=== PATIENT | male | born 1985 | race Caucasian/White ===

== ENCOUNTER 2022-05-20 08:29 | Outpatient (CLI) | payer BC | END 2022-05-20 08:30 | disposition home or self-care (01) | LOC: SC 08:29 | PROVIDERS: ATTEND Nurse Practitioner Family | DX: G47.33 Obstructive sleep apnea (adult) (pediatric) (principal); R09.02 Hypoxemia | CPT/HCPCS: 95806 ==

== ENCOUNTER 2022-05-24 14:21 | Outpatient (CLI) | payer BC ==
--- NOTE | 2022-05-24 14:53 | SLEEP CARE CONSULTATION ---
Information from patient questionnaire entered by Edwige Villalpando MA. I have reviewed and concur with the information entered by Edwige Villalpando MA. This document represents the service I personally performed and the decisions made by , Vandana Gray ARNP. History of Present Illness Service Date and Time: 05/24/2022 1421 Initial [place] Sleepiness Scale score: 12 (04/2022) Current [place] Sleepiness Scale score: 10 (05/24/22) Additional HPI information: RENETTA TRINIDAD returns for follow up and results of the recently performed home sleep study. I explained the pathophysiology behind obstructive sleep apnea. We then spent quite a bit of time discussing different treatment options. For mild obstructive sleep apnea, surgery and oral appliance are alternatives to nasal CPAP therapy but in moderate or severe cases, nasal CPAP is the most effective and reliable treatment. Because apnea is primarily in supine position, then positional management therapy could be effective. Methods discussed such as positioning with pillows t o prevent supine sleep. I reviewed the impact of weight changes on sleep apnea and strongly recommended losing weight. After some discussion, the patient opted to go with the nasal CPAP therapy. Nasal autoCPAP set at 4-15 cmH20 will be ordered with rationale explained. A manual titration study will be ordered if unable to find optimal pressure with office adjustments. I explained how CPAP machine works and what to expect when using the machine. Using CPAP every night in order to get used to it was emphasized. Patient advised to put CPAP mask on before getting into bed so as not to fall asleep without CPAP. To assist acclimation to CPAP use, it could also be used for a short time during day while reading or watching TV. The patient was instructed to call the CPAP supplier to discuss any mechanical problem that may occur. If the mask given is uncomfortable or is difficult to keep on through the night even with adjustment, contact the CPAP supplier as many will replace with another mask style if notified before 30 days. If snoring or perceives is not getting enough air or too much air from the machine, notify this office. Patient counseled not drink alcohol less than 4 hours before bedtime as it can increase snoring and apnea. Patient was cautioned about risks of drowsy driving until sleepiness symptoms resolve. Sleep Study - Results Type of Sleep Study: Home sleep study (f/u hst, 05/20/22, pos,) Prior sleep studies: No Polysomnography/Home Sleep Study results: Physician Impression: The quality of the study is good. The length of the study is adequate (> 240 minutes). Please also see the tabulated and graphic data. 1. Obstructive Sleep Apnea-Hypopnea (ICD-10 G47.33), severe, with an AHI of 45.0/hr and peter SaO2 of 83%. During the study, the patient had 178 apneas (178 obstructive, 0 central, 0 mixed) and 197 hypopneas. The longest episode lasted 106.5 seconds. The respiratory events occurred slightly more frequently during supine sleep (supine AHI was 65.0 and non-supine, 39.54). 2. Hypoxemia (ICD-10 R09.02), mild, with the lowest oxygen saturation of 83 % and 30.2 minutes with SaO2 under 90%. Baseline oxygen saturation was normal (Average oxygen saturation was 93%). Allergies and Home Medications Home medication list reviewed: Yes (no changes) Review of Systems Review of systems same as previous: Yes (no changes) Physical Exam Vital signs obtained and entered by: Gisella Villalpando CMA AMN Blood Pressure: 120/79 (PULSE 80, RESP 18, RIGHT,) Heart Rate: 85 O2 Saturation: 98 (PAPER MASK) Height: 6 ft 2 in Weight: 282 lb (COTHES) Body Mass Index: 36.1 BMI Classification: Obese Impression and Plan 1. Obstructive Sleep Apnea-Hypopnea Syndrome, severe, with lowest oxygen saturation of 83%. Obviously this is the cause of the patients symptoms of unrefreshed sleep, and excessive daytime sleepiness. Positive pressure therapy could benefit depression and attention deficit. As mentioned above, the patient will be started on nasal autoCPAP therapy with pressure set at 4-15 cmH2O. Compliance guidelines also reviewed. A copy of compliance guidelines will be given for reference at check out. 2. Hypoxemia, mild, with the lowest oxygen saturation of 83 % and 30.2 minutes with SaO2 under 90%. His baseline oxygen saturation was normal with an average oxygen saturation of 93%. * Nasal auto CPAP therapy, pressure at 4-15 cm H2O. * Attempt to lose weight. * Avoid alcohol consumption near bedtime. * Avoid supine sleep until using CPAP. * The patient is again cautioned about driving until sleepiness completely resolves. * Return one month after CPAP obtained. I will assess response to therapy and compliance at that time. Counseling Topics: Weight loss health impact Visit Type: In Office Time Spent with Patient (minutes): 20 Provider Statement: I spent 100% of the Face to Face Visit with the patient with greater than 50% spent counseling the patient and coordination of care.
[2022-05-24 14:54] VITALS: BP 120/79
== END 2022-05-24 14:22 | disposition home or self-care (01) ==
LOC: SC 14:21
PROVIDERS: ATTEND Nurse Practitioner Family
DX: G47.33 Obstructive sleep apnea (adult) (pediatric) (principal); R09.02 Hypoxemia; E66.9 Obesity, unspecified; Z68.36 Body mass index [BMI] 36.0-36.9, adult
CPT/HCPCS: 99212; 99213

== ENCOUNTER 2022-08-15 10:04 | Outpatient (CLI) | payer BC ==
--- NOTE | 2022-08-15 13:39 | SLEEP CARE CONSULTATION ---
Information from patient questionnaire entered by Rose Mcdonough MA. I have reviewed and concur with the information entered by Rose Mcdonough MA. This document represents the service I personally performed and the decisions made by , Vandana Gray ARNP. History of Present Illness Service Date and Time: 08/15/2022 1004 Previous diagnosis: Severe, Obstructive Sleep Apnea-Hypopnea Syndrome AHI: 45.0 (in 2021) Reason for follow up: first compliance Equipment type: CPAP Equipment obtained from: Other ([facility]; getting supplies) Mask style: Nasal pillows Mask brand: Resmed (P10) Backup mask available: Yes (other mask) Last cushion change: 4-6 weeks Prior sleep studies: No Type of Sleep Study: Home sleep study (f/u hst, 05/20/22, pos,) HPI additional information: RENETTA TRINIDAD was diagnosed to have severe, AHI 45.0, obstructive sleep apnea- hypopnea syndrome and returned today for CPAP therapy first compliance follow- up. Sleep Study - Results Type of Sleep Study: Home sleep study (f/u hst, 05/20/22, pos,) Prior sleep studies: No CPAP Compliance Data - Data Reviewed with Patient Average duration of nightly device use: 6 hrs 2 min Compliance rate %: 73 (55/60 days used) Current pressure setting (cmH2O): 7-15 (median 7.5, avg 9.0, max 9.8) Average residual AHI: 0.3 Average large leak: 2.7 L/min Subjective Missed days of use due to: reports: travel Patient concerns: reports: dry mouth, nose, throat, epistaxis, other (headache - occasional). denies: aerophagia, mask discomfort, air blowing in eyes, mask leak noise, condensation in mask/hose, nasal congestion Observed to snore while using device: No Current pressure setting perceived as: comfortable On therapy, patient: reports: sleeping better, awakening more refreshed, being more awake and alert during the day, more rested overall. denies: drowsiness while driving Initial [place] Sleepiness Scale score: 12 (04/2022) Current [place] Sleepiness Scale score: 4 Allergies and Home Medications Home medication list reviewed: Yes ([place]) Review of Systems Review of systems same as previous: Yes (no changes) Physical Exam Vital signs obtained and entered by: CRISTÓBAL JERRY Blood Pressure: 140/90 (left arm) Cuff size: long Heart Rate: 96 O2 Saturation: 98 Height: 6 ft 2 in Weight: 303 lb Body Mass Index: 38.9 BMI Classification: Obese Impression and Plan 1. Obstructive Sleep Apnea-Hypopnea Syndrome, severe, with good treatment compliance and good apnea control. On CPAP therapy, the patient has better sleep quality and is more rested overall. Patient has significant improvement of his sleep apnea and is satisfied with current CPAP therapy. He would like to continue pressure at current setting of 7-15 cmH2O. Patient advised to contact me if pressure becomes uncomfortable so that it can be adjusted. Goals for apnea control discussed. Patient's apnea severity and rationale for treatment to reduce apnea, improve sleep quality and reduce cardiovascular and cerebrovascular events was reviewed. I also reviewed the benefit of consistent device use of CPAP for depression and attention deficit. 2. Obesity, unspecified. Currently patients BMI is 38.9. Obesity increases the risk of apnea, CPAP pressure requirements and overall health risks especially cardiovascular and diabetes. Thus patient is advised to lose weight. Weight loss can be done with reducing portion size, reducing refined foods and balancing content with vegetables, fruit and whole grain foods. In addition, patient encouraged to get regular exercise. * Continue auto CPAP pressure at 7-15 cmH2O * Notify me if snoring with mask or feeling that the pressure is too much or too little * Attempt to lose weight * Call this office if any problems using CPAP * Return for follow up in 3 months, or sooner if concerns arise Counseling Topics: Spare mask, Weight loss health impact Visit Type: In Office (1ST COMPLIANCE) Time Spent with Patient (minutes): 21 Provider Statement: I spent 100% of the Face to Face Visit with the patient with greater than 50% spent counseling the patient and coordination of care.
[2022-08-15 13:40] VITALS: BP 140/90
== END 2022-08-15 10:05 | disposition home or self-care (01) ==
LOC: SC 10:04
PROVIDERS: ATTEND Nurse Practitioner Family
DX: G47.33 Obstructive sleep apnea (adult) (pediatric) (principal); E66.9 Obesity, unspecified; Z68.38 Body mass index [BMI] 38.0-38.9, adult
CPT/HCPCS: 99212; 99213

== ENCOUNTER 2022-09-17 08:15 | Outpatient (CLI) | payer BC ==
[2022-09-17 12:08] LABS: BASOPHILS % (AUTO) 0.4 %; EOSINOPHILS # (AUTO) 0.1 10^3/uL (0.0-0.7); EOSINOPHILS % (AUTO) 1.2 %; HCT - HEMATOCRIT 47.9 % (42.0-52.0); HGB - HEMOGLOBIN 16.3 g/dL (14.0-18.0); LYMPHOCYTES # (AUTO) 2.2 10^3/uL (1.5-3.5); LYMPHOCYTES % (AUTO) 22.4 %; MEAN CORPUSCULAR HEMOGLOBIN 29.4 pg (27.0-31.0); MEAN CORPUSCULAR VOLUME 86.5 fL (80.0-94.0); MEAN PLATELET VOLUME 10.4 fL (7.4-11.4); MONOCYTES # (AUTO) 0.7 10^3/uL (0.0-1.0); MONOCYTES % (AUTO) 7.3 %; NEUTROPHILS # (AUTO) 6.7 10^3/uL (1.5-6.6); NEUTROPHILS % (AUTO) 68.3 %; PLT - PLATELET COUNT 280 10^3/uL (130-450); RED BLOOD COUNT 5.54 10^6/uL (4.70-6.10); RED CELL DISTRIBUTION WIDTH 12.2 % (12.0-15.0); WHITE BLOOD COUNT 9.8 x10^3/uL (4.8-10.8)
[2022-09-17 12:29] LABS: ALBUMIN 4.6 g/dL (3.2-5.5); ALBUMIN/GLOBULIN RATIO 1.6 (1.0-2.2); ALKALINE PHOSPHATASE 73 IU/L (42-121); ALT ALANINE AMINOTRANSFERASE 68 IU/L (10-60); AST ASPARTATE AMINOTRANSFERASE 29 IU/L (10-42); BILIRUBIN,TOTAL 0.8 mg/dL (0.2-1.0); BUN - BLOOD UREA NITROGEN 18 mg/dL (6-20); CALCIUM 9.4 mg/dL (8.5-10.3); CARBON DIOXIDE - CO2 30 mmol/L (21-32); CHLORIDE 102 mmol/L (101-111); CHOL/HDL RATIO 5.8 (<5.0); CHOLESTEROL 202 mg/dL; CREATININE 1.3 mg/dL (0.6-1.2); GFR - MDRD 63 (>89); GLUCOSE 104 mg/dL (70-100); HDL CHOLESTEROL 35 mg/dL; LDL CHOLESTEROL,CALCULATED 107 mg/dL; LDL/HDL RATIO 3.1 (<3.6); POTASSIUM 4.2 mmol/L (3.5-5.0); SODIUM 139 mmol/L (135-145); TOTAL PROTEIN 7.5 g/dL (6.7-8.2); TRIGLYCERIDES 298 mg/dL; VLDL CHOLESTEROL 60 mg/dL
[2022-09-17 12:38] LABS: THYROID STIMULATING HORMONE 2.19 uIU/mL (0.34-5.60)
[2022-09-17 12:55] LABS: ESTIMATED AVERAGE GLUCOSE 108 mg/dL (70-100); HEMOGLOBIN A1c% 5.4 % (4.27-6.07)
== END 2022-09-17 08:16 | disposition home or self-care (01) ==
LOC: LAB.N 08:15
PROVIDERS: ATTEND Nurse Practitioner Family
DX: R03.0 Elevated blood-pressure reading, without diagnosis of hypertension (principal); Z13.220 Encounter for screening for lipoid disorders; E66.9 Obesity, unspecified; Z13.1 Encounter for screening for diabetes mellitus; E29.1 Testicular hypofunction; Z79.899 Other long term (current) drug therapy; Z91.89 Other specified personal risk factors, not elsewhere classified
CPT/HCPCS: 36415; 80053; 80061; 83036; 83721; 84403; 84443; 85025

== ENCOUNTER 2022-10-29 10:57 | Outpatient (CLI) | payer BC | END 2022-10-29 10:58 | disposition home or self-care (01) | LOC: NS 10:57 | PROVIDERS: ATTEND Internal Medicine | DX: Z71.3 Dietary counseling and surveillance (principal); E66.9 Obesity, unspecified; Z68.38 Body mass index [BMI] 38.0-38.9, adult | CPT/HCPCS: 97802 ==

== ENCOUNTER 2022-11-12 08:22 | Outpatient (CLI) | payer BC ==
[2022-11-12 09:12] VITALS: BP 162/98
--- NOTE | 2022-11-12 09:12 | SLEEP CARE CONSULTATION ---
Information from patient questionnaire entered by Errol Young. I have reviewed and concur with the information entered by Errol Young. This document represents the service I personally performed and the decisions made by me, Vandana Gray ARNP. History of Present Illness Service Date and Time: 11/12/2022821 Previous diagnosis: Severe, Obstructive Sleep Apnea-Hypopnea Syndrome AHI: 45.0 Reason for follow up: three month (F/U) Equipment type: CPAP (ResMed Airsense 11) Equipment obtained from: Other ([facility]; getting supplies) Mask style: Nasal pillows Mask brand: Resmed (P10) Backup mask available: Yes (old mask after swaps for new supplies rec'd) Last cushion change: 1-2 weeks Prior sleep studies: No Type of Sleep Study: Home sleep study (f/u hst, 05/20/22, pos,) HPI additional information: RENETTA TRINIDAD was diagnosed to have severe, AHI 45.0, obstructive sleep apnea- hypopnea syndrome and returned today for CPAP therapy three month follow-up. Sleep Study - Results Type of Sleep Study: Home sleep study (f/u hst, 05/20/22, pos,) Prior sleep studies: No CPAP Compliance Data - Data Reviewed with Patient Average duration of nightly device use: 6 HRS 55 MIN Compliance rate %: 97 (08/12/22-11/09/22; 90/90 days used) Current pressure setting (cmH2O): 7-15 (median 7.8, avg 9.3, max 10.2) Average residual AHI: 0.2 Central apnea: 0.0 Obstructive apnea: 0.1 Subjective Missed days of use due to: reports: travel Patient concerns: reports: mask discomfort (head gear stretched out and tightening - nose soreness in the morning), dry mouth, nose, throat (use chin strap/mouth tape to keep mouth closed), epistaxis, other (headache-may be due to dehydration accd to pt). denies: aerophagia, air blowing in eyes, mask leak noise, condensation in mask/hose, nasal congestion Observed to snore while using device: Yes (only if on his back) Current pressure setting perceived as: comfortable On therapy, patient: reports: sleeping better, awakening more refreshed, being more awake and alert during the day, more rested overall. denies: drowsiness while driving Initial [place] Sleepiness Scale score: 12 (04/2022) Current [place] Sleepiness Scale score: 9 (11/12/22) Allergies and Home Medications Drug allergies reviewed: Yes (NKDA) Home medication list reviewed: Yes Allergy and home medication list: Medications: Atomexidine 100 mg Hydroxyzine 25 mg Testosterone Amlodipine - new Review of Systems Review of systems same as previous: Yes (ADHD, Depression, HTN, Arthritis) Physical Exam Vital signs obtained and entered by: ERROL Diaz MA Blood Pressure: 162/98 (LEFT ARM) Cuff size: regular Heart Rate: 100 O2 Saturation: 96 Height: 6 ft 2 in Weight: 308 lb Body Mass Index: 39.5 BMI Classification: Obese Impression and Plan 1. Obstructive Sleep Apnea-Hypopnea Syndrome, severe, with good treatment compliance and good apnea control. On CPAP therapy, the patient has better sleep quality and is more rested overall. Patient has significant improvement of their sleep apnea and are satisfied with current CPAP therapy. Patient has been having some dry mouth but he feels this is because his if he turns on his back his mouth will come open. We discussed ways of him being able to keep his mouth closed while continuing to use his nasal pillows mask. These include a chinstrap or mouth strips that he can obtain to help keep his mouth closed. He voiced understanding. Patient has not been using the humidifier on his machine and encouraged him to do so if he continues to have dry mouth or nose. He has been having headaches but states this is normal for him and he does not feel it is due to the CPAP. Patient's apnea severity and rationale for treatment to reduce apnea, improve sleep quality and reduce cardiovascular and cerebrovascular events was reviewed. I also reviewed the benefit of consistent device use of CPAP for attention deficit and anxiety. 2. Obesity, unspecified. Currently patients BMI is 39.5. He is working with dietitian on his diet to try to lose weight. Obesity increases the risk of apnea, CPAP pressure requirements and overall health risks especially cardiovascular and diabetes. Thus patient is advised to continue to try to lose weight. Weight loss can be done with reducing portion size, reducing refined foods and balancing content with vegetables, fruit and whole grain foods. In addition, patient encouraged to get regular exercise. * Continue auto CPAP pressure at 7-15 cmH2O * Notify me if snoring with mask or feeling that the pressure is too much or too little * Attempt to lose weight * Call this office if any problems using CPAP * Return for follow up in 6 months, or sooner if concerns arise Counseling Topics: Spare mask, Weight loss health impact Visit Type: In Office Time Spent with Patient (minutes): 27 Provider Statement: I spent 100% of the Face to Face Visit with the patient with greater than 50% spent counseling the patient and coordination of care.
== END 2022-11-12 08:23 | disposition home or self-care (01) ==
LOC: SC 08:22
PROVIDERS: ATTEND Nurse Practitioner Family
DX: G47.33 Obstructive sleep apnea (adult) (pediatric) (principal); E66.9 Obesity, unspecified; Z68.39 Body mass index [BMI] 39.0-39.9, adult
CPT/HCPCS: 99212; 99213

== ENCOUNTER 2022-11-14 12:28 | Outpatient (CLI) | payer BC ==
--- NOTE | 2022-11-14 16:54 | XRAY Report ---
PROCEDURE: Knee Standing BILAT INDICATIONS: OSTEOARTHIRITS TECHNIQUE: AP standing view of bilateral knees. COMPARISON: Left knee radiograph dated 10/08/2022. FINDINGS: Bones: No acute fractures or dislocations. Mild bilateral medial and lateral femoral tibial compart ment joint space narrowing and subchondral sclerosis is seen. No suspicious bony lesions. Joint spac es appear normal with weightbearing. Soft tissues: No knee joint effusions. No suspicious soft tissue calcification. IMPRESSION: Mild bilateral medial and lateral femoral tibial compartment osteoarthritis more notably in bilateral medial femoral tibial compartments. Reviewed by: Morris Hess MD on 11/14/2022 4:53 PM PST Approved by: Morris Hess MD on 11/14/2022 4:53 PM PST Station ID: [id number]
== END 2022-11-14 12:29 | disposition home or self-care (01) ==
LOC: DI 12:28
PROVIDERS: ATTEND Orthopaedic Surgery
DX: M17.0 Bilateral primary osteoarthritis of knee (principal); E55.9 Vitamin D deficiency, unspecified; E29.1 Testicular hypofunction; Z79.899 Other long term (current) drug therapy
CPT/HCPCS: 36415; 82306

== ENCOUNTER 2022-11-20 08:36 | Outpatient (CLI) | payer BC | END 2022-11-20 08:37 | disposition home or self-care (01) | LOC: LAB.N 08:36 | PROVIDERS: ATTEND Nurse Practitioner Family | DX: E29.1 Testicular hypofunction (principal); Z79.899 Other long term (current) drug therapy | CPT/HCPCS: 36415; 84403 ==

== ENCOUNTER 2022-12-31 11:24 | Outpatient (CLI) | payer BC | END 2022-12-31 11:25 | disposition home or self-care (01) | LOC: NS 11:24 | PROVIDERS: ATTEND Nurse Practitioner Family | DX: Z71.3 Dietary counseling and surveillance (principal); E66.9 Obesity, unspecified; Z68.38 Body mass index [BMI] 38.0-38.9, adult | CPT/HCPCS: 97803 ==

== ENCOUNTER 2023-04-08 16:19 | Outpatient (CLI) | payer BC ==
--- NOTE | 2023-04-08 19:51 | XRAY Report ---
PROCEDURE: Knee 4 View LT INDICATIONS: LEFT KNEE PAIN TECHNIQUE: 4 views of the left knee(s) were acquired. COMPARISON: None. FINDINGS: Bones: No fractures or dislocations. No suspicious bony lesions. Normal joint space narrowing at the medial compartment. Tiny osteophyte at the lateral intracondylar notch. Small ossicle adjacent to the left patella. Soft tissues: No knee joint effusion. No suspicious soft tissue calcifications or masses. IMPRESSION: Mild left knee DJD, unchanged. Reviewed by: Neeraj Soto MD on 04/08/2023 7:50 PM PDT Approved by: Neeraj Soto MD on 04/08/2023 7:50 PM PDT Station ID: [id number]
== END 2023-04-08 16:20 | disposition home or self-care (01) ==
LOC: DI.WOS 16:19
PROVIDERS: ATTEND Orthopaedic Surgery
DX: M17.12 Unilateral primary osteoarthritis, left knee (principal)

== ENCOUNTER 2023-04-17 08:28 | Outpatient (CLI) | payer BC ==
[2023-04-17 11:59] LABS: BASOPHILS # (AUTO) 0.1 10^3/uL (0.0-0.1); BASOPHILS % (AUTO) 0.5 %; EOSINOPHILS # (AUTO) 0.4 10^3/uL (0.0-0.7); EOSINOPHILS % (AUTO) 3.7 %; HCT - HEMATOCRIT 46.5 % (42.0-52.0); LYMPHOCYTES # (AUTO) 2.4 10^3/uL (1.5-3.5); LYMPHOCYTES % (AUTO) 25.7 %; MEAN CORPUSCULAR HEMOGLOBIN 30.1 pg (27.0-31.0); MEAN CORPUSCULAR HGB CONC 34.4 g/dL (32.0-36.0); MEAN CORPUSCULAR VOLUME 87.6 fL (80.0-94.0); MEAN PLATELET VOLUME 10.8 fL (7.4-11.4); MONOCYTES # (AUTO) 0.7 10^3/uL (0.0-1.0); MONOCYTES % (AUTO) 7.8 %; NEUTROPHILS # (AUTO) 5.8 10^3/uL (1.5-6.6); NEUTROPHILS % (AUTO) 62.1 %; PLT - PLATELET COUNT 263 10^3/uL (130-450); RED BLOOD COUNT 5.31 10^6/uL (4.70-6.10); RED CELL DISTRIBUTION WIDTH 12.4 % (12.0-15.0); WHITE BLOOD COUNT 9.3 x10^3/uL (4.8-10.8)
[2023-04-17 12:18] LABS: ALBUMIN 4.3 g/dL (3.2-5.5); ALBUMIN/GLOBULIN RATIO 1.5 (1.0-2.2); ALKALINE PHOSPHATASE 57 IU/L (42-121); ALT ALANINE AMINOTRANSFERASE 54 IU/L (10-60); AST ASPARTATE AMINOTRANSFERASE 30 IU/L (10-42); BILIRUBIN,TOTAL 0.8 mg/dL (0.2-1.0); BUN - BLOOD UREA NITROGEN 15 mg/dL (6-20); CALCIUM 8.9 mg/dL (8.5-10.3); CARBON DIOXIDE - CO2 29 mmol/L (21-32); CHLORIDE 108 mmol/L (101-111); CHOL/HDL RATIO 5.6 (<5.0); CHOLESTEROL 180 mg/dL; CREATININE 1.3 mg/dL (0.6-1.2); GFR - MDRD 63 (>89); GLUCOSE 112 mg/dL (70-100); HDL CHOLESTEROL 32 mg/dL; LDL CHOLESTEROL,CALCULATED 73 mg/dL; LDL/HDL RATIO 2.3 (<3.6); POTASSIUM 3.9 mmol/L (3.5-5.0); SODIUM 140 mmol/L (135-145); TOTAL PROTEIN 7.1 g/dL (6.7-8.2); TRIGLYCERIDES 375 mg/dL; VLDL CHOLESTEROL 75 mg/dL
[2023-04-17 12:32] LABS: THYROID STIMULATING HORMONE 1.56 uIU/mL (0.34-5.60)
== END 2023-04-17 08:29 | disposition home or self-care (01) ==
LOC: LAB.N 08:28
PROVIDERS: ATTEND Nurse Practitioner Family
DX: I10 Essential (primary) hypertension (principal); E29.1 Testicular hypofunction; Z79.899 Other long term (current) drug therapy
CPT/HCPCS: 36415; 80053; 80061; 83721; 84443; 85025

== ENCOUNTER 2023-05-13 13:18 | Outpatient (CLI) | payer BC ==
--- NOTE | 2023-05-13 13:59 | SLEEP CARE CONSULTATION ---
Information from patient questionnaire entered by Errol Young. I have reviewed and concur with the information entered by Errol Young. This document represents the service I personally performed and the decisions made by me, Vandana Gray ARNP. History of Present Illness Service Date and Time: 05/13/2023 1318 Previous diagnosis: Severe, Obstructive Sleep Apnea-Hypopnea Syndrome AHI: 45.0 Reason for follow up: six month (F/U) Equipment type: CPAP (ResMed Airsense 11; s/u 05/2022) Equipment obtained from: Other ([facility]; getting supplies) Mask style: Nasal pillows Mask brand: Resmed (Airfit P10, medium cushion) Backup mask available: Yes (old mask) Last cushion change: 1 week Prior sleep studies: No Type of Sleep Study: Home sleep study (f/u hst, 05/20/22, pos,) HPI additional information: RENETTA TRINIDAD was diagnosed to have severe, AHI 45, obstructive sleep apnea- hypopnea syndrome and returned today for CPAP therapy six month follow-up. Sleep Study - Results Type of Sleep Study: Home sleep study (f/u hst, 05/20/22, pos,) Prior sleep studies: No CPAP Compliance Data - Data Reviewed with Patient Average duration of nightly device use: 7 HRS 15 MIN Compliance rate %: 94 (11/13/22-05/11/23; 176/180 days used) Current pressure setting (cmH2O): 7-9 Average residual AHI: 0.1 Subjective Patient concerns: reports: nasal congestion (little since not using humidifier due to condensation). denies: aerophagia, mask discomfort, air blowing in eyes, mask leak noise, condensation in mask/hose, dry mouth, nose, throat, epistaxis Observed to snore while using device: Yes (occasional, not all the time) On therapy, patient: reports: sleeping better, being more awake and alert during the day, more rested overall. denies: drowsiness while driving Initial [place] Sleepiness Scale score: 12 (04/2022) Current [place] Sleepiness Scale score: 14 (05/13/23) Allergies and Home Medications Known drug allergies: No Drug allergies reviewed: Yes Home medication list reviewed: Yes (Losartan 50 mg daily) Allergy and home medication list: Allergies No Known Drug Allergies Allergy (Verified 05/12/23 16:28) Review of Systems Review of systems same as previous: No (cauterized right nose for epistaxis history) Physical Exam Vital signs obtained and entered by: ERROL Diaz MA Blood Pressure: 136/80 (LEFT ARM ) Cuff size: long Heart Rate: 96 O2 Saturation: 96 Height: 6 ft 2 in Weight: 304 lb 12.8 oz Body Mass Index: 39.1 BMI Classification: Obese Impression and Plan 1. Obstructive Sleep Apnea-Hypopnea Syndrome, severe, with good treatment compliance and good apnea control. On CPAP therapy, the patient has better sleep quality and is more rested overall. Patient has significant improvement of their sleep apnea and is satisfied with current CPAP therapy. Patient has had some issues with condensation and has just turned the humidity off. He does get a little nasal congestion since then and I encouraged him to try to use a nasal moisturizer to help reduce that prior to bedtime. He voiced understanding. Patient's apnea severity and rationale for treatment to reduce apnea, improve sleep quality and reduce cardiovascular and cerebrovascular events was reviewed. I also reviewed the benefit of consistent device use of CPAP for anxiety and attention deficit. 2. Obesity, unspecified. Currently patients BMI is 39.1. Obesity increases the risk of apnea, CPAP pressure requirements and overall health risks especially cardiovascular and diabetes. Thus patient is advised to lose weight. * Continue auto CPAP pressure at 7-9 cmH2O * Notify me if snoring with mask or feeling that the pressure is too much or too little * Attempt to lose weight * Call this office if any problems using CPAP * Return for follow up in 1 year, or sooner if concerns arise Counseling Topics: Spare mask, Weight loss health impact Visit Type: In Office Time Spent with Patient (minutes): 22 Provider Statement: I spent 100% of the Face to Face Visit with the patient with greater than 50% spent counseling the patient and coordination of care.
[2023-05-13 14:02] VITALS: BP 136/80
== END 2023-05-13 13:19 | disposition home or self-care (01) ==
LOC: SC 13:18
PROVIDERS: ATTEND Nurse Practitioner Family
DX: G47.33 Obstructive sleep apnea (adult) (pediatric) (principal); E66.9 Obesity, unspecified; Z68.39 Body mass index [BMI] 39.0-39.9, adult
CPT/HCPCS: 99212; 99213

== ENCOUNTER 2023-07-15 09:08 | Outpatient (CLI) | payer BC ==
--- NOTE | 2023-07-15 09:42 | CARDIAC PROCEDURE NOTE ---
Stress Test Report Service Date: 07/15/23 Service Time: 09:30 Ordering Provider: Rosemary James Indication for Test: Assess for inducible ischemia in patient with a moderately increased ASCVD risk profile, who is under consideration for treatment with stimulant ADHD me dication. Significant Medical History: Nathaniel is referred for a stress echocardiogram today, primarily to risk stratify him for contemplated treatment with stimulant ADHD medication. His history is notable for progressive obesity, history of treated hypertension (as below) and dyslipidemia. 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 His exercise is primarily limited by knee arthritis and back pain. He specifically denies experiencing chest discomfort, undue shortness of breath, palpitations and lightheadedness. Cardiac Risk Factors: Positive for hypertension treated for about 2 yrs (BP is reportedly now better controlled following recent increase in losartan to 100 mg and continued amlodipine, 5 mg daily), and dyslipidemia (TC 180, HDLc 32, LDLc 73, TG 375); negative for diabetes, history of tobacco smoking and known family history of CAD. Type of Stress Test: ETT with Echocardiography Procedure: -Exercise Treadmill Test- After signing informed consent, the patient underwent baseline echo imaging at rest and then performed treadmill exercise using a Darwin protocol. The patient exercised for 8 minutes 10 seconds and achieved a peak heart rate of 162 (87 percent predicted maximum heart rate for age), and an estimated workload of 10.2 METS. The test was terminated due to fatigue/shortness of breath and right calf pain. Resting heart rate: 76 Peak heart rate: 162 Normal response to exercise. Resting BP: 139/84 Peak BP: 250/54 Hypertensive systolic and normal diastolic BP responses to exercise. Rhythm during exercise: Sinus rhythm throughout, without ectopy. Symptoms: No description of chest pain/pressure/discomfort. EKG at rest showed normal sinus rhythm, fully normal tracing (with computer comment that QRS duration of 116 msec is borderline). EKG at peak stress showed no ischemia by EKG criteria; note that RV conduction delay (rSr' in V1) is more evident at higher rates. In Recovery heart rate and blood pressure rapidly/normally returned towards baseline levels. Echo imaging performed at rest and with stress will be reported separately. Nabil Lange MD, was present throughout this treadmill stress study and supervised it in its entirety. Summary: 1) Exercise tolerance well below average for age and sex as evidenced by PO of 35%. 2) Normal resting EKG. 3) Adequate level of exercise was achieved on this treadmill stress test. 4) Hypertensive systolic BP response to exercise (though resting BP adequately controlled on current regimen). 5) No ischemic changes by EKG criteria were seen at peak stress. 6) Echo image interpretation reveals normal left ventricular size, wall thickness and systolic function, with appropriate hyperdynamic augmentation of all segments with exercise, indicating no evidence of prior infarct or inducible ischemia. No significant valvular abnormality or elevation of estimated pulmonary artery systolic pressure seen on screening study. See separate report for more details. Conclusions and Recommendations: 1) This is a reassuring stress echocardiogram study, most notable for reduced exercise capacity, that is likely multifactorial (overweight, orthopedic limitations, habit, etc), but with no symptom, EKG nor echocardiographic signs of inducible ischemia. 2) There should be no cardiovascular contraindications to initiating stimulant ADHD medication, with the recommendation for continued BP surveillance and anti- hypertensive medication adjustment as needed. 3) He has started an intermittent fasting program (8 hours on, 16 hours off) in hopes of experiencing gradual weight loss and he was strongly encouraged to increase his aerobic exercise to at least 150 minutes per week in divided segments. He hopes that with effective ADHD treatment his motivation to succeed with these lifestyle changes will increase.
== END 2023-07-15 09:09 | disposition home or self-care (01) ==
LOC: DI 09:08
PROVIDERS: ATTEND Nurse Practitioner Family
DX: E78.1 Pure hyperglyceridemia (principal); R94.31 Abnormal electrocardiogram [ECG] [EKG]; R07.89 Other chest pain; Z91.89 Other specified personal risk factors, not elsewhere classified; I10 Essential (primary) hypertension; E66.9 Obesity, unspecified; F90.9 Attention-deficit hyperactivity disorder, unspecified type
CPT/HCPCS: 93350

== ENCOUNTER 2023-12-10 08:56 | Outpatient (CLI) | payer BC ==
[2023-12-10 12:48] LABS: ALBUMIN 4.8 g/dL (3.2-5.5); ALKALINE PHOSPHATASE 67 IU/L (42-121); ALT ALANINE AMINOTRANSFERASE 96 IU/L (10-60); AST ASPARTATE AMINOTRANSFERASE 37 IU/L (10-42); BILIRUBIN,TOTAL 0.7 mg/dL (0.2-1.0); BUN - BLOOD UREA NITROGEN 15 mg/dL (6-20); CALCIUM 9.7 mg/dL (8.5-10.3); CARBON DIOXIDE - CO2 31 mmol/L (21-32); CHLORIDE 103 mmol/L (101-111); CHOLESTEROL 205 mg/dL; CREATININE 1.3 mg/dL (0.6-1.3); GFR - MDRD 62 (>89); GLUCOSE 109 mg/dL (74-104); HDL CHOLESTEROL 34 mg/dL; POTASSIUM 4.3 mmol/L (3.5-4.5); SODIUM 139 mmol/L (135-145); TOTAL PROTEIN 7.2 g/dL (6.4-8.9); TRIGLYCERIDES 419 mg/dL (48-352)
[2023-12-10 12:51] LABS: ESTIMATED AVERAGE GLUCOSE 100 mg/dL (70-100); HEMOGLOBIN A1c% 5.1 % (4.27-6.07)
[2023-12-10 13:18] LABS: THYROID STIMULATING HORMONE 1.62 uIU/mL (0.34-5.60)
[2023-12-10 13:37] LABS: LDL CHOLESTEROL,DIRECT 106 mg/dL (75-193); LDLD/HDL RATIO 3.1 (<3.6)
== END 2023-12-10 08:57 | disposition home or self-care (01) ==
LOC: LAB.N 08:56
PROVIDERS: ATTEND Nurse Practitioner Family
DX: I10 Essential (primary) hypertension (principal); E78.1 Pure hyperglyceridemia; E66.9 Obesity, unspecified; E29.1 Testicular hypofunction
CPT/HCPCS: 36415; 80053; 80061; 83036; 83721; 84403; 84443

== ENCOUNTER 2023-12-17 08:46 | Outpatient (CLI) | payer BC | END 2023-12-17 08:47 | disposition home or self-care (01) | LOC: LAB.N 08:46 | PROVIDERS: ATTEND Nurse Practitioner Family | DX: E29.1 Testicular hypofunction (principal) | CPT/HCPCS: 36415; 83001; 83002; 84403 ==

== ENCOUNTER 2024-04-27 09:21 | Outpatient (CLI) | payer BC ==
[2024-04-27 12:07] LABS: CHOL/HDL RATIO 7.2 (<5.0); CHOLESTEROL 210 mg/dL; HDL CHOLESTEROL 29 mg/dL; LDL CHOLESTEROL,DIRECT 57 mg/dL (75-193); TRIGLYCERIDES 598 mg/dL (48-352)
== END 2024-04-27 09:22 | disposition home or self-care (01) ==
LOC: LAB.N 09:21
PROVIDERS: ATTEND Nurse Practitioner Family
DX: E78.1 Pure hyperglyceridemia (principal); E66.9 Obesity, unspecified
CPT/HCPCS: 36415; 80061; 83721

== ENCOUNTER 2024-05-21 12:46 | Outpatient (CLI) | payer BC ==
--- NOTE | 2024-05-21 13:12 | Sleep Patient Instructions ---
Sleep Center Visit Summary - Patient Visit Information Reason for Visit: Annual follow-up - Patient Instructions Additional Instructions: You will continue with CPAP therapy with pressure set at 7-9 cmH2O. A supply prescription will be updated with your DME. We encourage you to continue to try to lose weight. Please follow up with the sleep care office in 1 year. - Clinic Information Contact: [facility] [address] [place] [address] [email or web address] T: [phone]
--- NOTE | 2024-05-21 13:14 | SLEEP CARE CONSULTATION ---
Information from patient questionnaire entered by Ria Young. I have reviewed and concur with the information entered by Ria Young. This document represents the service I personally performed and the decisions made by , Vandana Gray ARNP. History of Present Illness Service Date and Time: 05/21/2024 1246 Previous diagnosis: Severe, Obstructive Sleep Apnea-Hypopnea Syndrome AHI: 45.0 (05/20/22) Reason for follow up: annual (LAST SEEN 04/2023) Equipment type: CPAP (ResMed Airsense 11; s/u 05/2022) Equipment obtained from: Other ([facility]; getting supplies) Mask style: Nasal pillows (Bruno II, medium cushion) Backup mask available: Yes (other mask) Last cushion change: 1 month Prior sleep studies: No Type of Sleep Study: Home sleep study (f/u hst, 05/20/22, pos,) HPI additional information: RENETTA TRINIDAD was diagnosed to have severe, AHI 45, obstructive sleep apnea- hypopnea syndrome and returned today for CPAP therapy annual follow-up. Sleep Study - Results Type of Sleep Study: Home sleep study (f/u hst, 05/20/22, pos,) Prior sleep studies: No CPAP Compliance Data - Data Reviewed with Patient Average duration of nightly device use: 7 HRS 44 MINS Compliance rate %: 100 (05/20/23-05/18/24; 365/365 days used) Current pressure setting (cmH2O): 7-9 Average residual AHI: 0.2 Central apnea: 0 Obstructive apnea: 0.1 Hypopnea: 0 Average large leak: 0.1 L/min Subjective Patient concerns: denies: aerophagia, mask discomfort, air blowing in eyes, mask leak noise, condensation in mask/hose, nasal congestion, dry mouth, nose, throat, epistaxis Observed to snore while using device: No Current pressure setting perceived as: comfortable On therapy, patient: reports: sleeping better, awakening more refreshed, being more awake and alert during the day, more rested overall. denies: drowsiness while driving Initial [place] Sleepiness Scale score: 12 (04/2022) Current [place] Sleepiness Scale score: 5 Allergies and Home Medications Known drug allergies: No Drug allergies reviewed: Yes Home medication list reviewed: Yes (as listed) Allergy and home medication list: Allergies No Known Drug Allergies Allergy (Verified 05/19/24 09:39 Home Medications Medication Instructions Recorded Confirmed Last Taken Type Cholecalciferol [Vitamin D3] See Rx Instructions .ROUTE .COMPLEX 11/12/22 05/21/24 Unknown History Fexofenadine [Opal] See Rx Instructions .ROUTE .COMPLEX 11/12/22 05/21/24 Unknown History Mv-Min/Folic/K1/Lycopen/Lutein See Rx Instructions .ROUTE .COMPLEX 11/12/22 05/21/24 Unknown History [Centrum Silver Men Tablet] amLODIPine [Norvasc] See Rx Instructions .ROUTE .COMPLEX 11/12/22 05/21/24 Unknown History hydrOXYzine HCL [Hydroxyzine HCl] See Rx Instructions .ROUTE .COMPLEX 11/12/22 05/21/24 Unknown History Losartan [Cozaar] See Rx Instructions .ROUTE .COMPLEX 05/13/23 05/21/24 Unknown History Methylphenidate ER See Rx Instructions .ROUTE .COMPLEX 05/21/24 05/21/24 Unknown History Review of Systems Review of systems same as previous: Yes (no changes) Physical Exam Vital signs obtained and entered by: Vandana Sauceda NP Blood Pressure: 141/83 Cuff size: long (right arm) Heart Rate: 78 O2 Saturation: 99 Height: 6 ft 2 in Weight: 295 lb 6.4 oz Weight change since last visit: 9 lb loss Body Mass Index: 37.9 BMI Classification: Obese Impression and Plan 1. Obstructive Sleep Apnea-Hypopnea Syndrome, severe, with good treatment compliance and good apnea control. On CPAP therapy, the patient has better sleep quality and is more rested overall. Patient has significant improvement of their sleep apnea and is satisfied with current CPAP therapy. Patient denies problems with oral dryness, nasal congestion, epistaxis, skin irritation or aerophagia. Patient's apnea severity and rationale for treatment to reduce apnea, improve sleep quality and reduce cardiovascular and cerebrovascular events was reviewed. I also reviewed the benefit of consistent device use of CPAP for anxiety and attention deficit. 2. Obesity, unspecified. Currently patients BMI is 37.9. He has lost weight. Obesity increases the risk of apnea, CPAP pressure requirements and overall health risks especially cardiovascular and diabetes. Thus patient is advised to lose weight. * Continue auto CPAP pressure at 7-9 cmH2O * Update supply prescription * Notify me if snoring with mask or feeling that the pressure is too much or too little * Attempt to lose weight * Call this office if any problems using CPAP * Return for follow up in 12 months, or sooner if concerns arise Counseling Topics: Spare mask, Weight loss health impact Prescriptions: Device supplies Follow up with Sleep Care in: 1 year Visit Type: In Office Time Spent with Patient (minutes): 20 Provider Statement: I spent 100% of the Face to Face Visit with the patient with greater than 50% spent counseling the patient and coordination of care.
[2024-05-21 13:22] VITALS: BP 141/83; O2SAT 99
== END 2024-05-21 12:47 | disposition home or self-care (01) ==
LOC: SC 12:46
PROVIDERS: ATTEND Nurse Practitioner Family
DX: G47.33 Obstructive sleep apnea (adult) (pediatric) (principal); E66.9 Obesity, unspecified; Z68.37 Body mass index [BMI] 37.0-37.9, adult
CPT/HCPCS: 99212; 99213